=== PATIENT | female | born 1995 | race Caucasian/White ===

== ENCOUNTER 2017-10-07 18:51 | Emergency (ER) | payer MEDICAID ==
[2017-10-07] MEDS: ACETAMINOPHEN 500 MG TAB PO (22:12)
[2017-10-07] MEDS: ONDANSETRON (ODT) 4 MG TAB ODT (22:12)
[2017-10-07 22:47] LABS: ADD UMIC NO; UR ASCORBIC ACID NEGATIVE (NEGATIVE); UR BILIRUBIN (Dip) NEGATIVE (NEGATIVE); UR BLOOD (Dip) NEGATIVE (NEGATIVE); UR CLARITY CLEAR (CLEAR); UR COLOR YELLOW (YELLOW); UR GLUCOSE (Dip) NEGATIVE (NEGATIVE); UR KETONES (Dip) NEGATIVE (NEGATIVE); UR LEUKOCYTE ESTERASE (Dip) NEGATIVE Leu/ul (NEGATIVE); UR NITRITE (Dip) NEGATIVE (NEGATIVE); UR SPECIFIC GRAVITY (Dip) 1.011 (1.003-1.030); UR TOTAL PROTEIN (Dip) NEGATIVE (NEGATIVE); UR UROBILINOGEN (Dip) NEGATIVE (NEGATIVE)
== END 2017-10-07 23:40 | disposition home or self-care (01) ==
LOC: FTE 23:40
DX: O99.512 Diseases of the respiratory system complicating pregnancy, second trimester (principal); J06.9 Acute upper respiratory infection, unspecified; R10.2 Pelvic and perineal pain; Z3A.16 16 weeks gestation of pregnancy
CPT/HCPCS: 76801; 81003; 99284-25

== ENCOUNTER 2018-03-24 12:44 | Inpatient (IN) | payer MEDICAID ==
[2018-03-24] MEDS ORDERED: METHYLERGONOVINE 0.2 MG INJ IM (17:30)
[2018-03-24] MEDS ORDERED: CARBOPROST 250 MCG INJ IM (17:30)
[2018-03-24] MEDS ORDERED: OXYTOCIN 30 UNITS/LR 500 ML IV (17:30)
[2018-03-24 18:47] LABS: ADD MAN DIFF? NO
[2018-03-24 18:50] LABS: BASOPHILS % 0.2 % (0.0-2.0); EOSINOPHILS # 0.1 10^3/ul (0.0-0.5); EOSINOPHILS % 0.8 % (0.0-7.0); HEMATOCRIT 38.3 % (37.0-47.0); HEMOGLOBIN 13.4 g/dl (12.0-16.0); LYMPHOCYTES # 1.4 10^3/ul (0.8-2.9); LYMPHOCYTES % 11.9 % (15.0-51.0); MEAN CORPUSCULAR HEMOGLOBIN 29.9 pg (29.0-33.0); MEAN CORPUSCULAR VOLUME 85.5 fl (82.0-101.0); MEAN PLATELET VOLUME 10.5 fl (7.4-10.4); MONOCYTE # 0.8 10^3/ul (0.3-0.9); MONOCYTES % 6.4 % (0.0-11.0); NEUTROPHIL # 9.5 10^3/ul (1.6-7.5); NEUTROPHILS % 80.2 % (39.0-77.0); PLATELET COUNT 241 10^3/UL (140-415); RED BLOOD COUNT 4.48 10^6/ul (4.20-5.40); RED CELL DISTRIBUTION WIDTH 12.7 % (11.5-14.5)
[2018-03-24 18:50] LABS: WHITE BLOOD COUNT 11.8 10^3/ul (4.8-10.8)
[2018-03-24] MEDS: AMPICILLIN 2 GM/NS (PMX) 100 ML IV (19:02)
[2018-03-24] MEDS: LACTATED RINGER'S 1,000 ML IV* (19:02)
[2018-03-24 19:11] LABS: INR 0.85; PROTIME 11.7 Sec (11.9-14.9); PT RATIO 0.9
[2018-03-24 19:12] LABS: PARTIAL THROMBOPLASTIN TIME 27.5 Sec (25.0-35.0)
[2018-03-24 19:44] LABS: HEPATITIS B SURFACE ANTIGEN NEGATIVE (NEGATIVE)
[2018-03-24] MEDS: AMPICILLIN 1 GM/NS (PMX) 50 ML IV (23:48)
[2018-03-25] MEDS: LACTATED RINGER'S 1,000 ML IV* ×2 (02:36→11:30)
[2018-03-25] MEDS: AMPICILLIN 1 GM/NS (PMX) 50 ML IV ×3 (03:52→09:30)
[2018-03-25] MEDS ORDERED: BUTORPHANOL 2 MG INJ IV (08:00)
[2018-03-25] MEDS ORDERED: FENTAnyl 50 MCG/ML VIAL (14:52)
[2018-03-25 14:57] LABS: RAPID PLASMA REAGIN NONREACTIVE (NR)
[2018-03-25] MEDS: FENTAnyl 50 MCG/ML VIAL IV (15:10)
[2018-03-25] MEDS: LIDOCAINE 1% (MPF) 30 ML INJ INJ (15:10)
[2018-03-25] MEDS: OXYTOCIN 30 UNITS/LR 500 ML IV ×3 (15:12→19:10)
[2018-03-25] MEDS: MISOPROSTOL 200 MCG TAB PR (15:13)
[2018-03-25] MEDS: IBUPROFEN 600 MG TAB PO ×3 (16:14→23:09)
[2018-03-25] MEDS ORDERED: OXYTOCIN 30 UNITS/LR 500 ML IV (17:30)
[2018-03-25] MEDS ORDERED: DIPHENHYDRAMINE 25 MG CAP PO (17:30)
[2018-03-25] MEDS ORDERED: ZOLPIDEM 5 MG TAB PO (17:30)
[2018-03-25] MEDS ORDERED: ONDANSETRON 4 MG INJ IV (17:30)
[2018-03-25] MEDS ORDERED: CARBOPROST 250 MCG INJ IM (17:30)
[2018-03-25] MEDS ORDERED: MISOPROSTOL 200 MCG TAB PR (17:30)
[2018-03-25] MEDS ORDERED: NACL 0.9% 3 ML SYG IV (17:30)
[2018-03-25] MEDS: LANOLIN 7 GM TUBE TOP (18:07)
[2018-03-25] MEDS: WITCH HAZEL/GLYCERIN PAD PR (18:07)
[2018-03-25] MEDS: HYDROCODONE/APAP (5/325) TAB PO (18:07)
[2018-03-25 19:09] LABS: HEMOGLOBIN 11.1 g/dl (12.0-16.0)
[2018-03-25] MEDS: SENNA/DOCUSATE NA (8.6MG/50MG) TAB PO (23:09)
[2018-03-26] MEDS: IBUPROFEN 600 MG TAB PO ×3 (05:48→17:30)
[2018-03-26] MEDS: SENNA/DOCUSATE NA (8.6MG/50MG) TAB PO ×2 (08:54→21:00)
[2018-03-26 11:39] LABS: ADD MAN DIFF? NO
[2018-03-26 11:42] LABS: WHITE BLOOD COUNT 13.1 10^3/ul (4.8-10.8)
[2018-03-26 11:42] LABS: BASOPHILS % 0.2 % (0.0-2.0); EOSINOPHILS # 0.1 10^3/ul (0.0-0.5); EOSINOPHILS % 0.4 % (0.0-7.0); HEMATOCRIT 31.4 % (37.0-47.0); HEMOGLOBIN 10.8 g/dl (12.0-16.0); LYMPHOCYTES # 1.5 10^3/ul (0.8-2.9); LYMPHOCYTES % 11.3 % (15.0-51.0); MEAN CORPUSCULAR HEMOGLOBIN 30.3 pg (29.0-33.0); MEAN CORPUSCULAR HGB CONC 34.4 g/dl (32.0-37.0); MEAN CORPUSCULAR VOLUME 88.2 fl (82.0-101.0); MEAN PLATELET VOLUME 10.8 fl (7.4-10.4); MONOCYTES % 7.9 % (0.0-11.0); NEUTROPHIL # 10.4 10^3/ul (1.6-7.5); NEUTROPHILS % 79.5 % (39.0-77.0); PLATELET COUNT 204 10^3/UL (140-415); RED BLOOD COUNT 3.56 10^6/ul (4.20-5.40); RED CELL DISTRIBUTION WIDTH 13.3 % (11.5-14.5)
[2018-03-27] MEDS: IBUPROFEN 600 MG TAB PO ×4 (00:06→18:00)
[2018-03-27] MEDS: SENNA/DOCUSATE NA (8.6MG/50MG) TAB PO (09:00)
[2018-03-27] MEDS: MEASLES,MUMPS,RUBELLA VACCINE INJ SC* (09:49)
[2018-03-27] MEDS: DIPHTH/TET/ACEL PERTUSS (ADULT) 0.5 ML VIAL IM* (09:50)
[2018-03-27] MEDS: VARICELLA VACCINE LIVE/PF 1,350 UNIT/0.5 ML ML SC* (09:50)
== END 2018-03-27 18:15 | disposition home or self-care (01) | DRG 775 ==
LOC: OBT 12:44 → PP1 03-25 17:49 → L-D 12:44 → OBT 17:30 → L-D 17:30
PROVIDERS: Obstetrics & Gynecology
PROC: 10E0XZZ Delivery of Products of Conception, External Approach (ICD-10-PCS; principal; 2018-03-25)
PROC: 0KQM0ZZ Repair Perineum Muscle, Open Approach (ICD-10-PCS; 2018-03-25)
PROC: 0UQM0ZZ Repair Vulva, Open Approach (ICD-10-PCS; 2018-03-25)
DX: O76 Abnormality in fetal heart rate and rhythm complicating labor and delivery (principal); O70.1 Second degree perineal laceration during delivery; O69.81X0 Labor and delivery complicated by cord around neck, without compression, not applicable or unspecified; Z3A.40 40 weeks gestation of pregnancy; Z37.0 Single live birth
CPT/HCPCS: 85014; 85018; 85025; 85610; 85730; 86592; 86850; 86900; 86901; 87340

== ENCOUNTER 2018-08-15 11:15 | Inpatient (IN) | payer MEDICAID ==
[~2018-08-15 11:15] MED LIST: DESFLURANE 15 MIN; ROCURONIUM 50 MG INJ; SUCCINYLCHOLINE CHLORIDE 100 MG/5 ML SYG IV
[2018-08-15] MEDS: SOD CHLORIDE 0.9% 1,000 ML IV ×2 (12:33→13:46)
[2018-08-15] MEDS: morphine 2 MG INJ IV (12:33)
[2018-08-15 12:36] LABS: ADD MAN DIFF? NO
[2018-08-15 12:38] LABS: BASOPHILS % 0.3 % (0.0-2.0); EOSINOPHILS # 0.2 10^3/ul (0.0-0.5); EOSINOPHILS % 2.7 % (0.0-7.0); HEMATOCRIT 30.5 % (37.0-47.0); HEMOGLOBIN 10.1 g/dl (12.0-16.0); LYMPHOCYTES # 0.9 10^3/ul (0.8-2.9); LYMPHOCYTES % 12.8 % (15.0-51.0); MEAN CORPUSCULAR HEMOGLOBIN 28.3 pg (29.0-33.0); MEAN CORPUSCULAR HGB CONC 33.1 g/dl (32.0-37.0); MEAN CORPUSCULAR VOLUME 85.4 fl (82.0-101.0); MEAN PLATELET VOLUME 9.1 fl (7.4-10.4); MONOCYTE # 0.8 10^3/ul (0.3-0.9); MONOCYTES % 12.2 % (0.0-11.0); NEUTROPHIL # 4.8 10^3/ul (1.6-7.5); NEUTROPHILS % 71.7 % (39.0-77.0); PLATELET COUNT 313 10^3/UL (140-415); RED BLOOD COUNT 3.57 10^6/ul (4.20-5.40); RED CELL DISTRIBUTION WIDTH 13.9 % (11.5-14.5)
[2018-08-15 12:38] LABS: WHITE BLOOD COUNT 6.7 10^3/ul (4.8-10.8)
[2018-08-15 13:10] LABS: ADD UMIC YES; UR ASCORBIC ACID NEGATIVE (NEGATIVE); UR BILIRUBIN (Dip) NEGATIVE (NEGATIVE); UR BLOOD (Dip) 3+ mg/dL (NEGATIVE); UR CLARITY SLIGHTLY CLOUDY (CLEAR); UR COLOR AMBER (YELLOW); UR GLUCOSE (Dip) NEGATIVE (NEGATIVE); UR KETONES (Dip) NEGATIVE (NEGATIVE); UR LEUKOCYTE ESTERASE (Dip) NEGATIVE Leu/ul (NEGATIVE); UR MUCUS FEW /HPF (NONE SEEN); UR NITRITE (Dip) NEGATIVE (NEGATIVE); UR RBC > 182 /HPF (0-5); UR SPECIFIC GRAVITY (Dip) 1.028 (1.003-1.030); UR SQUAMOUS EPITHELIAL CELL FEW /HPF (FEW); UR TOTAL PROTEIN (Dip) 1+ mg/dl (NEGATIVE); UR UROBILINOGEN (Dip) 1+ mg/dL (NEGATIVE); UR WBC 27 /HPF (0-5)
[2018-08-15] MEDS: HYDROmorphONE 1 MG/ML SYG IV (13:46)
[2018-08-15] MEDS ORDERED: FENTAnyl 50 MCG/ML VIAL IV (14:30)
[2018-08-15] MEDS ORDERED: METOCLOPRAMIDE 10 MG INJ IV (14:30)
[2018-08-15] MEDS ORDERED: ALBUTEROL 0.083% (NEB) 2.5 MG/3 ML AMP HHN (14:30)
[2018-08-15] MEDS ORDERED: HYDROmorphONE 1 MG/5 ML IV SYRINGE IV (14:30)
[2018-08-15] MEDS ORDERED: FENTAnyl 50 MCG/ML VIAL (15:33)
[2018-08-15] MEDS ORDERED: ROPIVACAINE 0.5 % 30 ML VIAL (15:33)
[2018-08-15] MEDS ORDERED: PHENYLephrine (100 MCG/ML) 10ML SYG (15:43)
[2018-08-15] MEDS ORDERED: NEOSTIGMINE 3 MG/3 ML SYRINGE (15:54)
[2018-08-15] MEDS ORDERED: LIDOCAINE 100 MG SYRINGE (15:54)
[2018-08-15] MEDS ORDERED: GLYCOPYRROLATE 0.4 MG INJ (15:54)
[2018-08-15] MEDS ORDERED: SUCCINYLCHOLINE CHLORIDE 100 MG/5 ML SYG IV (15:54)
[2018-08-15] MEDS ORDERED: CEFAZOLIN 1 GM INJ (15:54)
[2018-08-15] MEDS ORDERED: PROPOFOL 20 ML (15:54)
[2018-08-15] MEDS: HYDROmorphONE 1 MG/5 ML IV SYRINGE IV ×2 (17:19→17:24)
[2018-08-15] MEDS: MEPERIDINE 25 MG INJ IV (17:24)
[2018-08-15] MEDS: DIPHENHYDRAMINE 50 MG INJ IV (17:25)
[2018-08-15] MEDS: ONDANSETRON 4 MG INJ IV (17:25)
[2018-08-15] MEDS ORDERED: ONDANSETRON 4 MG INJ IV (18:00)
[2018-08-15 18:07] LABS: ADD UMIC YES; UR ASCORBIC ACID NEGATIVE (NEGATIVE); UR BACTERIA FEW /HPF (NONE SEEN); UR BILIRUBIN (Dip) NEGATIVE (NEGATIVE); UR BLOOD (Dip) 2+ mg/dL (NEGATIVE); UR CLARITY CLEAR (CLEAR); UR COLOR YELLOW (YELLOW); UR GLUCOSE (Dip) NEGATIVE (NEGATIVE); UR KETONES (Dip) 2+ mg/dL (NEGATIVE); UR LEUKOCYTE ESTERASE (Dip) NEGATIVE Leu/ul (NEGATIVE); UR MUCUS FEW /HPF (NONE SEEN); UR NITRITE (Dip) NEGATIVE (NEGATIVE); UR RBC 62 /HPF (0-5); UR SPECIFIC GRAVITY (Dip) 1.027 (1.003-1.030); UR TOTAL PROTEIN (Dip) NEGATIVE (NEGATIVE); UR UROBILINOGEN (Dip) NEGATIVE (NEGATIVE); UR WBC 1 /HPF (0-5)
[2018-08-15] MEDS: FENTAnyl 50 MCG/ML VIAL IV (18:11)
[2018-08-15] MEDS: IBUPROFEN 600 MG TAB PO (19:03)
[2018-08-15] MEDS: OXYCODONE/ACETAMINOPHEN (5/325) TAB PO (20:00)
[2018-08-15] MEDS: CEFAZOLIN 2 GM/50 ML (PMX) 50 ML IVPB (21:50)
[2018-08-15] MEDS: HYDROCODONE/APAP (5/325) TAB PO (22:07)
[2018-08-15] MEDS: morphine 4 MG/ML VIAL IV (23:24)
[2018-08-16] MEDS: IBUPROFEN 600 MG TAB PO ×4 (00:35→17:40)
[2018-08-16 05:30] LABS: ADD MAN DIFF? NO
[2018-08-16 05:32] LABS: WHITE BLOOD COUNT 8.3 10^3/ul (4.8-10.8)
[2018-08-16 05:32] LABS: BASOPHILS % 0.2 % (0.0-2.0); EOSINOPHILS # 0.1 10^3/ul (0.0-0.5); EOSINOPHILS % 0.6 % (0.0-7.0); HEMATOCRIT 25.1 % (37.0-47.0); HEMOGLOBIN 8.2 g/dl (12.0-16.0); LYMPHOCYTES # 0.9 10^3/ul (0.8-2.9); MEAN CORPUSCULAR HEMOGLOBIN 28.7 pg (29.0-33.0); MEAN CORPUSCULAR HGB CONC 32.7 g/dl (32.0-37.0); MEAN CORPUSCULAR VOLUME 87.8 fl (82.0-101.0); MEAN PLATELET VOLUME 9.3 fl (7.4-10.4); MONOCYTE # 0.9 10^3/ul (0.3-0.9); MONOCYTES % 10.7 % (0.0-11.0); NEUTROPHIL # 6.4 10^3/ul (1.6-7.5); NEUTROPHILS % 77.3 % (39.0-77.0); PLATELET COUNT 249 10^3/UL (140-415); RED BLOOD COUNT 2.86 10^6/ul (4.20-5.40); RED CELL DISTRIBUTION WIDTH 13.5 % (11.5-14.5)
[2018-08-16] MEDS: CEFAZOLIN 2 GM/50 ML (PMX) 50 ML IVPB ×3 (05:32→22:23)
[2018-08-16] MEDS: OXYCODONE/ACETAMINOPHEN (5/325) TAB PO ×2 (15:02→20:21)
[2018-08-17] MEDS: IBUPROFEN 600 MG TAB PO ×2 (00:19→06:08)
[2018-08-17] MEDS: CEFAZOLIN 2 GM/50 ML (PMX) 50 ML IVPB (06:08)
== END 2018-08-17 12:45 | disposition home or self-care (01) | DRG 817 ==
LOC: FTE 11:15 → SDS 13:50 → REC 17:35 → MS1 18:58
PROVIDERS: Obstetrics & Gynecology
PROC: 10T20ZZ Resection of Products of Conception, Ectopic, Open Approach (ICD-10-PCS; principal; 2018-08-15 14:40)
PROC: 0UT60ZZ Resection of Left Fallopian Tube, Open Approach (ICD-10-PCS; 2018-08-15 14:40)
PROC: 0DBU0ZZ Excision of Omentum, Open Approach (ICD-10-PCS; 2018-08-15 14:40)
PROC: 0U9 Female Reproductive System, Drainage (ICD-10-PCS; 2018-08-15 14:40)
DX: O00.102 Left tubal pregnancy without intrauterine pregnancy (principal); K66.1 Hemoperitoneum
CPT/HCPCS: 36415; 76801; 76817; 81001; 81025; 84702; 85025; 86850; 86900; 86901; 87086; 88305; 96374; 96375; 96376; 99217; 99285-25